=== PATIENT | male | born 2000 | race African-American/Black ===

== ENCOUNTER 2021-10-15 15:44 | Emergency (ER) | payer OTHER, SELFPAY ==
[2021-10-15 15:53] VITALS: BP 129/65; PULSE 80; RESP 18; TEMP 36.3; O2SAT 99; BMI 24.3
[2021-10-15] MEDS: ONDANSETRON 4 MG/2 ML INJ IV (16:07)
[2021-10-15 16:21] LABS: Add Manual Diff / Slide Review NO; Basophils Absolute Auto 0 /uL (0-100); Basophils Percent Auto 0.2 % (0-2); Eosinophils Absolute Auto 200 /uL (0-450); Eosinophils Percent Auto 1.7 % (2-4); Hemoglobin 15.4 g/dL (13.5-17.5); Lymphocytes Absolute Auto 1500 /uL (1100-4500); Lymphocytes Percent Auto 11.6 % (25-40); Mean Corpuscular HGB Conc 34.1 % (30-36); Mean Corpuscular Hemoglobin 29.4 PG (26-34); Monocytes Absolute Auto 600 /uL (0-900); Monocytes Percent Auto 4.8 % (3-14); Neutrophils Absolute Auto 10400 /uL (1500-7000); Neutrophils Percent Auto 81.7 % (50-75); Platelet Count 241 X10^3/uL (150-400); Red Blood Cell Count 5.24 X10^6/uL (4.5-5.9); White Blood Cell Count 12.8 X10^3/uL (4.5-11.0)
[2021-10-15 16:32] LABS: Alanine Aminotransferase 32 IU/L (<50); Albumin 5.1 g/dL (3.5-5.0); Albumin Globulin Ratio 1.3 (1.0-2.8); Alkaline Phosphatase 81 U/L (38-126); Aspartate Aminotransferase 39 IU/L (17-59); BUN Creatinine Ratio 23.9 (6-22); Bilirubin Total 0.9 mg/dL (0.2-1.3); Blood Urea Nitrogen 16 mg/dL (9-20); Calcium 9.1 mg/dL (8.4-10.2); Carbon Dioxide 26 mmol/L (22-32); Chloride 103 mmol/L (98-107); Estimated Glomerular Filt Rate > 60.0 mL/min (>60); Globulin 3.8 g/dL (1.7-4.1); Glucose 103 mg/dL (70-100); Lipase 69 U/L (23-300); Sodium 138 mmol/L (137-145); Total Protein 8.9 g/dL (6.3-8.2)
[2021-10-15 16:33] LABS: HEMOLYSIS 66 (0-50)
[2021-10-15 16:34] LABS: Potassium 4.3 mmol/L (3.4-5.1)
[2021-10-15] MEDS: PANTOPRAZOLE 40 MG VIAL IV (16:56)
[2021-10-15] MEDS: SODIUM CHLORIDE 0.9% 1,000 ML 1000 ML IV (16:57)
[2021-10-15] MEDS: MAG HYDROX/ALUM/SIMETH 30 ML UDC PO (16:58)
[2021-10-15] MEDS: LIDOCAINE VISCOUS 2% 15 ML SOLUTION PO (16:58)
--- NOTE | 2021-10-15 17:09 | ED.ABDPAIN ---
HPI - Abdominal Pain <Joel Cooper PA-C - Last Filed: 10/15/21 18:19> General Chief Complaint: Abdominal Pain Stated Complaint: ABD PAIN THROWING UP Time Seen by Provider: 10/15/21 16:26 Source: patient Mode of arrival: Ambulatory History of Present Illness HPI narrative: This is a 21-year-old male presenting to the emergency department due to acute onset primarily left-sided abdominal pain onset roughly 5 hours ago after eating a sandwich. Patient states that he ate a steak sandwich and very soon after began feeling left and central abdominal pain . Also reports 2 episodes of vomiting and did not report any kind of blood in the vomit. Patient states that he has not passed gas but does not feel the urge to either. Denies any fevers, chest pain, shortness of breath, or any other concerning signs or symptoms. No history of chronic GI diagnoses. Related Data Allergies Allergy/AdvReac Type Severity Reaction Status Date / Time No Known Drug Allergies Allergy Verified 10/15/21 15:52 Review of Systems <Joel Cooper PA-C - Last Filed: 10/15/21 18:19> Review of Systems Narrative: See HPI Patient History <Joel Cooper PA-C - Last Filed: 10/15/21 18:19> Social History Smoking Status: Never smoker Smoking Status: Never smoker Substance Use Type: does not use Exam <Joel Cooper PA-C - Last Filed: 10/15/21 18:19> Initial Vital Signs Initial Vital Signs: Vital Signs Temperature 97.4 F L 10/15/21 15:53 Pulse Rate 80 10/15/21 15:53 Respiratory Rate 18 10/15/21 15:53 Blood Pressure 129/65 10/15/21 15:53 Pulse Oximetry 99 10/15/21 15:53 Const General: other (Appears uncomfortable) GI Inspection: normal to inspection Palpation: soft and tender (Tenderness to palpation of the left upper, left lower, and periumbilical) Other: No point tenderness of the right lower quadrant <Alessandro Beyer DO - Last Filed: 10/16/21 08:09> Initial Vital Signs Initial Vital Signs: Vital Signs Temperature 97.4 F L 10/15/21 15:53 Pulse Rate 80 10/15/21 15:53 Respiratory Rate 18 10/15/21 15:53 Blood Pressure 129/65 10/15/21 15:53 Pulse Oximetry 99 10/15/21 15:53 Course <Joel Cooper PA-C - Last Filed: 10/15/21 18:19> Orders Ordered: Discontinued Medications Al Hydrox/Mg Hydrox/Simethicone (Mag Hydrox/Alum/Simeth 30 Ml Udc) 30 ml PO NOW ONE Stop: 10/15/21 16:45 Last Admin: 10/15/21 16:58 Dose: 30 ml Documented by: ASHKAN Sodium Chloride (Normal Saline 0.9%) 1,000 mls @ 1,000 mls/hr IV BOLUS ONE Stop: 10/15/21 17:41 Last Infusion: 10/15/21 18:00 Dose: 0 mls/hr Documented by: Admin: 10/15/21 16:57 Dose: 1,000 mls/hr Documented by: ASHKAN Lidocaine HCl (Lidocaine Viscous 2% 15 Ml Solution) 15 ml PO NOW ONE Stop: 10/15/21 16:45 Last Admin: 10/15/21 16:58 Dose: 15 ml Documented by: ASHKAN Ondansetron HCl (Ondansetron 4 Mg/2 Ml Inj) 4 mg IV NOW ONE Stop: 10/15/21 15:58 Last Admin: 10/15/21 16:07 Dose: 4 mg Documented by: ELIZ Pantoprazole Sodium (Pantoprazole 40 Mg Vial) 40 mg IV NOW ONE Stop: 10/15/21 16:43 Last Admin: 10/15/21 16:56 Dose: 40 mg Documented by: ASHKAN Reevaluation(s) Reevaluation #1: 1800: On re-examination patient reports feeling much better the and states that the abdominal pain has much improved. Vital Signs Vital signs: Vital Signs - 8 hr 10/15/21 15:53 10/15/21 18:02 Temperature 97.4 F L Pulse Rate 80 71 Respiratory Rate 18 16 Blood Pressure 129/65 112/68 Pulse Oximetry 99 99 <Alessandro Beyer DO - Last Filed: 10/16/21 08:09> Orders Ordered: Discontinued Medications Al Hydrox/Mg Hydrox/Simethicone (Mag Hydrox/Alum/Simeth 30 Ml Udc) 30 ml PO NOW ONE Stop: 10/15/21 16:45 Last Admin: 10/15/21 16:58 Dose: 30 ml Documented by: ASHKAN Sodium Chloride (Normal Saline 0.9%) 1,000 mls @ 1,000 mls/hr IV BOLUS ONE Stop: 10/15/21 17:41 Last Infusion: 10/15/21 18:00 Dose: 0 mls/hr Documented by: Admin: 10/15/21 16:57 Dose: 1,000 mls/hr Documented by: AHSKAN Lidocaine HCl (Lidocaine Viscous 2% 15 Ml Solution) 15 ml PO NOW ONE Stop: 10/15/21 16:45 Last Admin: 10/15/21 16:58 Dose: 15 ml Documented by: ASHKAN Ondansetron HCl (Ondansetron 4 Mg/2 Ml Inj) 4 mg IV NOW ONE Stop: 10/15/21 15:58 Last Admin: 10/15/21 16:07 Dose: 4 mg Documented by: EILZ Pantoprazole Sodium (Pantoprazole 40 Mg Vial) 40 mg IV NOW ONE Stop: 10/15/21 16:43 Last Admin: 10/15/21 16:56 Dose: 40 mg Documented by: ASHKAN Vital Signs Vital signs: Vital Signs - 8 hr 10/15/21 15:53 10/15/21 18:02 Temperature 97.4 F L Pulse Rate 80 71 Respiratory Rate 18 16 Blood Pressure 129/65 112/68 Pulse Oximetry 99 99 MDM - Abdominal Pain <Joel Cooper PA-C - Last Filed: 10/15/21 18:19> Lab Data Result diagrams: 10/15/21 16:05 10/15/21 16:05 Labs: Lab Results 10/15/21 10/15/21 Range/Units 16:05 16:05 WBC 12.8 H (4.5-11.0) X10^3/uL RBC 5.24 (4.5-5.9) X10^6/uL Hgb 15.4 (13.5-17.5) g/dL Hct 45.0 (41-53) % MCV 86.0 (80-100) fL MCH 29.4 (26-34) PG MCHC 34.1 (30-36) % RDW 14.0 (11.6-14.8) % Plt Count 241 (150-400) X10^3/uL Neut % (Auto) 81.7 H (50-75) % Lymph % (Auto) 11.6 L (25-40) % [place] % (Auto) 4.8 (3-14) % Eos % (Auto) 1.7 L (2-4) % Baso % (Auto) 0.2 (0-2) % Neut # (Auto) 97363 H (4855-7691) /uL Lymph # (Auto) 1500 (5445-2227) /uL [place] # (Auto) 600 (0-900) /uL Eos # (Auto) 200 (0-450) /uL Baso # (Auto) 0 (0-100) /uL Sodium 138 (137-145) mmol/L Potassium 4.3 (3.4-5.1) mmol/L Chloride 103 (98-107) mmol/L Carbon Dioxide 26 (22-32) mmol/L BUN 16 (9-20) mg/dL Creatinine 0.67 (0.66-1.25) mg/dL Estimated GFR > 60.0 (>60) mL/min BUN/Creatinine Ratio 23.9 H (6-22) Glucose 103 H (70-100) mg/dL Calcium 9.1 (8.4-10.2) mg/dL Total Bilirubin 0.9 (0.2-1.3) mg/dL AST 39 (17-59) IU/L ALT 32 (<50) IU/L Alkaline Phosphatase 81 (38-126) U/L Total Protein 8.9 H (6.3-8.2) g/dL Albumin 5.1 H (3.5-5.0) g/dL Globulin 3.8 (1.7-4.1) g/dL Albumin/Globulin Ratio 1.3 (1.0-2.8) Lipase 69 (23-300) U/L [facility] Narrative Medical decision making narrative: This is a otherwise healthy 21-year-old male presents to the emergency department acute onset abdominal pain after eating a sandwich. Lab work showed a very mild leukocytosis which I suspect is reactive. Patient's nausea was controlled here in the emergency department. After Liter of fluids and a GI cocktail patient's abdominal pain significantly improved. Due to the improvement the pain and reassuring lab work felt comfortable discharging patient home with instructions for a bland diet. Strict ED return precautions given. <Alessandro Beyer, DO - Last Filed: 10/16/21 08:09> Lab Data Labs: Lab Results 10/15/21 10/15/21 Range/Units 16:05 16:05 WBC 12.8 H (4.5-11.0) X10^3/uL RBC 5.24 (4.5-5.9) X10^6/uL Hgb 15.4 (13.5-17.5) g/dL Hct 45.0 (41-53) % MCV 86.0 (80-100) fL MCH 29.4 (26-34) PG MCHC 34.1 (30-36) % RDW 14.0 (11.6-14.8) % Plt Count 241 (150-400) X10^3/uL Neut % (Auto) 81.7 H (50-75) % Lymph % (Auto) 11.6 L (25-40) % [place] % (Auto) 4.8 (3-14) % Eos % (Auto) 1.7 L (2-4) % Baso % (Auto) 0.2 (0-2) % Neut # (Auto) 69496 H (0676-3071) /uL Lymph # (Auto) 1500 (9063-9296) /uL [place] # (Auto) 600 (0-900) /uL Eos # (Auto) 200 (0-450) /uL Baso # (Auto) 0 (0-100) /uL Sodium 138 (137-145) mmol/L Potassium 4.3 (3.4-5.1) mmol/L Chloride 103 (98-107) mmol/L Carbon Dioxide 26 (22-32) mmol/L BUN 16 (9-20) mg/dL Creatinine 0.67 (0.66-1.25) mg/dL Estimated GFR > 60.0 (>60) mL/min BUN/Creatinine Ratio 23.9 H (6-22) Glucose 103 H (70-100) mg/dL Calcium 9.1 (8.4-10.2) mg/dL Total Bilirubin 0.9 (0.2-1.3) mg/dL AST 39 (17-59) IU/L ALT 32 (<50) IU/L Alkaline Phosphatase 81 (38-126) U/L Total Protein 8.9 H (6.3-8.2) g/dL Albumin 5.1 H (3.5-5.0) g/dL Globulin 3.8 (1.7-4.1) g/dL Albumin/Globulin Ratio 1.3 (1.0-2.8) Lipase 69 (23-300) U/L Discharge Plan Departure Patient Disposition: Home Clinical Impression: Gastroenteritis Instructions: [place] Diet, DI for Viral Gastroenteritis -- Adult Activity Restrictions/Additional Instructions: I am glad you are feeling much better after the GI cocktail gave you. Please read the attached information regarding gastroenteritis which I suspect was due to a sandwich. You please be very careful with her diet for now and eat very bland diet. In if you develop any worsening abdominal plain please return to the emergency department for further evaluation. <Alessandro Beyer DO - Last Filed: 10/16/21 08:09> [facility] ED Attending Mercedesature Attestation: I was immediately available in the department for consultation. This documentation has been reviewed and I agree with assessment and plan. Supervised by Alessandro Beyer DO
[2021-10-15 18:02] VITALS: BP 112/68; PULSE 71; RESP 16; O2SAT 99
== END 2021-10-15 18:18 | disposition home or self-care (01) ==
PROVIDERS: Emergency Medicine; Emergency Provider Physician Assistant Medical
DX: K52.9 Noninfective gastroenteritis and colitis, unspecified (principal)
CPT/HCPCS: 36415; 80053; 83690; 85025; 96361; 96374; 96375; 99284; C9113; J2405